=== PATIENT | male | born 1995 | race Caucasian/White ===

== ENCOUNTER 2019-07-08 23:42 | Emergency (ER) | payer MEDICAID ==
[~2019-07-08] VITALS: Ht 175.3 cm; Wt 111.1 kg
[2019-07-09 00:01] VITALS: Ht 175.3 cm; Wt 111.1 kg
[2019-07-09 01:58] LABS: BASOPHIL % 0.2 % (0-2); PLATELET COUNT 170 x10^3mcL (130-400); RED CELL DISTRIBUTION WIDTH 12.4 % (11.5-14.5)
[2019-07-09 02:05] LABS: CALCIUM 8.5 mg/dL (8.5-10.1); CARBON DIOXIDE 30.3 mmol/L (21-32); CHLORIDE SERUM 102 mmol/L (98-107); GFR1 > 60 mL/min; GLUCOSE SERUM 93 mg/dL (74-106); POTASSIUM SERUM 3.5 mmol/L (3.5-5.1); SODIUM SERUM 142 mmol/L (136-145)
[2019-07-09 02:09] LABS: ALBUMIN 3.7 g/dL (3.4-5.0); ALKALINE PHOSPHATASE 92 U/L (46-116); ALT/SGPT 132 U/L (16-63); AST/SGOT 58 U/L (15-37); BILIRUBIN TOTAL 0.64 mg/dL (0.20-1.00)
[2019-07-09 03:01] LABS: microscopic required? NO
[2019-07-09 03:26] LABS: urine erythrocyte NEGATIVE (NEGATIVE)
[2019-07-09 03:49] VITALS: BP 129/56
== END 2019-07-09 03:49 | disposition home or self-care (01) ==
LOC: ED 23:42
PROVIDERS: Emergency Medicine
DX: L03.311 Cellulitis of abdominal wall (principal); R51 Headache
CPT/HCPCS: J2270; J2405; J2543